=== PATIENT | male | born 1980 | race Caucasian/White ===

== ENCOUNTER → 2018-02-20 | Outpatient (CLI) | payer OTHER | LOC: COL.RAD 08:54 | DX: S73.192A Other sprain of left hip, initial encounter (principal); S73.191A Other sprain of right hip, initial encounter | CPT/HCPCS: A9585; J3301; Q9967 ==

== ENCOUNTER → 2018-05-23 | Outpatient (CLI) | payer OTHER | LOC: ZCOL.LAB 17:23 | DX: Z01.812 Encounter for preprocedural laboratory examination (principal); Z86.14 Personal history of Methicillin resistant Staphylococcus aureus infection ==